=== PATIENT | female | born 1985 | race Caucasian/White ===

== ENCOUNTER 2023-11-21 00:34 | Day surgery (SDC) | payer BC, SELFPAY ==
--- NOTE | 2023-11-20 16:17 | PM.IMHP ---
H&P: HPI History of Present Illness Date/Time: 11/20/23 16:17 Chief Complaint: complex right ovarian cyst Narrative: 38-year-old female status post hysterectomy seen in the office in 6 12/13/2023 with severe pelvic pain. Scan outside facility shows a complex right ovarian cyst. She complains of severe intractable pain. She has multiple medical problems and takes many medicines. Unfortunately she has been on was then back and we discussed the increase risk of GI complications. In light of her severe discomfort she will undergo urgent right salpingo-oophorectomy. Exam Const: General: cooperative and healthy appearing Nutritional Appearance: obese Orientation/consciousness: oriented to person, oriented to place and oriented to time Resp: Effort & Inspection: normal respiratory effort Cardio: Rate: regular rate Rhythm: regular rhythm Heart sounds: S1 normal heart sound present and S2 normal heart sound present GI: Inspection: normal to inspection : External Female Exam: normal external appearance Speculum Exam - Vagina: normal appearance of the vagina Speculum Exam - Cervix: Cervix absent Bimanual exam- vagina & uterus: uterus absent Bimanual Exam- Adnexa, other: Adnexal mass present on the right tender Assessment and Plan Assessment and plan (1) Complex cyst of right ovary: Code(s): N83.291 - Other ovarian cyst, right side Status: Acute Assessment and Plan: laparoscopic right salpingo-oophorectomy
--- NOTE | 2023-11-20 16:51 | PC.NURSE ---
Report to the Outpatient Waiting Room, entrance under the green pavilion located off [facility], at time 1115 on date 11/21/23. Planned Procedure Time: 1315. Time changes happen often and if your time is changed the preop area will call you the afternoon before. - You and your visitor will be asked to self-screen and do not enter if you have any COVID symptoms. - A mask is optional within the hospital at this time. Patients may have clear liquids (water, carbonated beverages, clear teas, apple juice) until 3 hours prior to surgery with a maximum of 20 ounces. 1015 - No food from midnight until time of surgery - Infants may have breast milk until 4 hours before surgery, formula 6 hours prior to surgery. - Children will be allowed to drink immediately following surgery. If applicable, please bring a bottle or sippy cup to assist with drinking. Juice, water, soda, and popsicles are readily available. For infants on formula, please bring formula the day of surgery. Pacifiers are allowed. Take the following medications with a SIP of water the morning of surgery: BUSPAR, LEVOTHYROXINE DO NOT STOP ANY OF YOUR OTHER PRESCRIPTION MEDICATIONS PRIOR TO SURGERY ?EXCEPT THE FOLLOWING Medications to discontinue per physician N/A- PATIENT HAS NOT HAD OZEMPIC FOR SEVERAL WEEKS. LAST DOSE WAS 11/03/23. Date to take last dose Please no make-up, nail lithuanian, hairspray, perfume, deodorant, or body powder the day of surgery. No jewelry (including any body piercings) or valuables the day of surgery, leave them at home. Please take a shower or bath the night before, or the morning of, surgery with an antibacterial soap. Wear comfortable, loose fitting clothing. Children are encouraged to wear pajamas. - Jewelry must be removed prior to entering the operating room. Rings and piercings that are not removed may be cut off. - The hospital will not accept responsibility for valuables. - Please leave all valuables, including medications, at home the day of surgery. If you are going home after surgery, a licensed local hazmat driver must drive you home. - NO public transportation without another adult if you receive anesthesia. - We recommend that an adult stay with you for 24 hours following discharge. - We also recommend that you do not drive, make important decision, drink alcoholic beverages, or take any drugs that were not prescribed by your health care provider for at least 24 hours after your discharge time. For Pediatric surgeries, we recommend two adults accompany the child home. Follow any additional instructions given to you from your surgeon. If you or anyone in your household have experienced Covid symptoms in the past week, please notify your surgeon or the nurse liaison at the phone number below for possible testing. Telephone instructions given to Patient- Laura Modi and asked if any additional questions and then verbalized understanding. Patient advised to call surgeon office or pre surgery nurse liaison [phone] if any additional questions.
[2023-11-20 17:02] VITALS: BMI 40.3
--- NOTE | 2023-11-21 04:46 | WPDHPUPDATE1 ---
History and Physical Update Update Date/Time: 11/21/23 04:46 History and Physical has been reviewed, including an updated exam of the patient. There are NO changes in the patient's condition. Risks, benefits, and alternatives have been discussed and questions answered. Patient agrees to proceed with procedure.
--- NOTE | 2023-11-21 10:56 | ECG_ITS ---
Test Date: 2023-11-21 11:26:41 Measurements Intervals [place] Rate: 79 P: 14 [place]: 145 QRS: 28 QRSD: 90 T: 40 QT: 374 QTc: 430 Interpretive Statements SINUS RHYTHM NORMAL ELECTROCARDIOGRAM No previous ECG available for comparison Electronically Signed On 11-21-2023 15:48:06 CDT by Fabio Vogt M.D.
[2023-11-21 10:59] VITALS: BP 106/73; PULSE 90; RESP 14; TEMP 36.9; O2SAT 99
[2023-11-21 11:05] VITALS: BMI 38.8
[2023-11-21] MEDS: LACTATED RINGERS 1,000 ML 30 ML IV CONT ×2 (11:30→13:23)
--- NOTE | 2023-11-21 11:38 | SUR.PREOP ---
1138- Notified Dr. Mo and Dr. Robert Ponce patient's Type and Screen and BMP sent to lab and pending. Per Dr. Mo and Dr. Robert Ponce OK to proceed with case.
[2023-11-21] MEDS: ACETAMINOPHEN 500 MG TABLET 1000 MG PO (11:40)
[2023-11-21] MEDS: KETOROLAC 15 MG/ML VIAL (*BKC) IV PUSH (11:40)
--- NOTE | 2023-11-21 11:41 | WPDANESEPPF ---
Anes - Initial Pre Proc Eval Procedure: Operation Date: 11/21/23 13:15 Proposed Procedures p Laparoscopic Right Salpingo-oophorectomy - Antoine Ponce MD Date/Time: 11/21/23 11:41 Surgeon: Antoine Ponce MD Pre Op Diagnosis: Rt Ovarian Cyst, Severe Pain Patient Data Age: 38 Gender: F Height: 1.57 m Weight: 96.4 kg Allergies Allergy/AdvReac Type Severity Reaction Status Date / Time loratadine [From Claritin-D] AdvReac Other Verified 11/21/23 11:13 pseudoephedrine AdvReac Other Verified 11/21/23 11:13 [From Claritin-D] Sulfa (Sulfonamide AdvReac Other Verified 11/21/23 11:13 Antibiotics) Home Medications Medication Instructions Recorded Confirmed Type buspirone 10 mg tablet 10 mg PO BID 11/20/23 11/20/23 History insulin aspart U-100 100 unit/mL See Rx Instructions .Route .COMPLEX 11/20/23 11/20/23 History (3 mL) subcutaneous pen (Novolog FlexPen U-100 Insulin aspart) insulin degludec 100 unit/mL (3 30 unit subcut HS 11/20/23 11/20/23 History mL) subcutaneous pen (Tresiba FlexTouch U-100 insulin) lamotrigine 150 mg tablet 300 mg PO HS 11/20/23 11/20/23 History levothyroxine 175 mcg tablet 175 mcg PO DAILY 11/20/23 11/20/23 History semaglutide 2 mg/dose (8 mg/3 mL) 2 mg subcut WEEKLY 11/20/23 11/20/23 History subcutaneous pen injector (Ozempic) venlafaxine 150 mg 150 mg PO HS 11/20/23 11/20/23 History capsule,extended release 24 hr Laboratory Tests 11/21/23 11:35 Sodium Pending Potassium Pending Chloride Pending Carbon Dioxide Pending Anion Gap Pending BUN Pending Creatinine Pending Estim Creat Clear Calc Pending Estimated GFR Pending Glucose Pending Calcium Pending Patient hx anesthesia problems: post op nausea/vomiting Family hx anesthesia problems: none Results Review: All pre-operative results and documents have been reviewed as part of the pre-operative evaluation. [facility] Social History Social History Smoking packs per day: 0.5 Smoking cigarettes per day: 10.0 Years smoked: 9 Smoking pack-years: 4.50 Smoking status: Former smoker Tobacco type: cigarettes Spiritual care concerns: No Anes - Eval Final PreProcedure Day of Procedure 11/21/23 11:41 Patient weight: obese Heart: regular rate and rhythm Lungs: clear to auscultation Airway: Mallampati scale class II Neurological: alert and oriented Last oral intake: >/= 8 hours ASA classification: III Emergent: no Anesthetic plan: proceed Anesthesia type and monitoring: general ETT and standard monitoring Results Review: All pre-operative results and documents have been reviewed as part of the pre-operative evaluation. Informed Consent: The patient's anesthetic plan and its attendant risks and benefits were discussed with the patient/family/POA. Questions were solicited and answers provided to the satisfaction of the patient/family/POA.
[2023-11-21 11:45] LABS: Glucose Point of Care 144 mg/dl (65-105)
[2023-11-21 11:50] LABS: Anion Gap 8 mmol/L (4-12); Blood Urea Nitrogen 10 mg/dL (7-17); Calcium 9.1 mg/dL (8.4-10.2); Carbon Dioxide 25 mmol/L (22-30); Chloride 106 mmol/L (98-107); Estimated CRCL calculation 116 ml/min; Estimated Glomerular Filt Rate > 60; Glucose 153 mg/dL (65-110); Potassium 4.2 mmol/L (3.4-5.0); Sodium 139 mmol/L (137-145)
--- NOTE | 2023-11-21 12:17 | SUR.PREOP ---
1217- Call to LELAND Anand in OR room 7 for second confirmation type. Per Dr. Robert Ponce do not send second confirmation type as it is not needed.
--- NOTE | 2023-11-21 12:24 | W.PM.PROC2 ---
Procedure Note - Detailed Date of Procedure 11/21/23 Pre-op Diagnosis Rt Ovarian Cyst, Severe Pain Post-op Diagnosis Same Procedure Performed Laparoscopic right salpingo-oophorectomy Surgeon Antoine Ponce MD Anesthesia General Indications this is a 38-year-old status post hysterectomy with the complex right ovarian cyst Findings uterus was absent. There is a large right ovarian cyst. The left ovary and tube appeared within normal limits. Description of Procedure Patient was prepped draped in the normal sterile fashion placed dorsal lithotomy position. Excellent general trach anesthesia weighted speculum placed in posterior fornix. A sponge stick placed in the bladder drained of clear urine. The weighted speculum was removed the gloves were changed. An infraumbilical incision made the Veress passed the abdomen filled with CO2 gas 15. 5mm trocar advanced under direct visualization assuring no injury. Patient placed in Trendelenburg and a suprapubic incision made advanced under direct visualization assuring no injury. A right lower quadrant incision made in the 10mm trocar advanced under direct visualization assuring no injury this large irregular right complex was noted in the infundibulopelvic structure was clamped burned cut with the LigaSure. This was placed in an Endo-Catch through the right lower quadrant. Left ovary and tube appeared within normal limits and no other abnormalities were seen. Lower site removed. The gas from the abdomen. The upper site. The incisions closed with 4-0 Monocryl glue. The sponge stick removed from the vagina the patient was awakened and went to recovery in satisfactory condition. All sponge, needle, instrument counts were correct. there were no Complications Estimated Blood Loss 5 Drains No Packing No Pathology Yes Complications No immediate complications Condition Stable Disposition PACU
[2023-11-21 12:30] VITALS: BP 151/73; PULSE 82; RESP 18; TEMP 35.9; O2SAT 93
[2023-11-21] MEDS: fentaNYL CITRATE INJ (*CRX) 100 MCG/2 ML VIAL 25 MCG IV PUSH ×2 (12:42→13:00)
[2023-11-21 12:45] VITALS: BP 130/66; PULSE 92; RESP 20; O2SAT 93
[2023-11-21 12:45] LABS: Glucose Point of Care 143 mg/dl (65-105)
[2023-11-21 13:00] VITALS: BP 114/67; PULSE 87; RESP 20; TEMP 36.3; O2SAT 96
[2023-11-21 13:10] VITALS: BP 141/76; PULSE 94; RESP 14
[2023-11-21] MEDS: oxyCODONE HCL (*CRX) 5 MG TAB IR PO (13:35)
[2023-11-21 13:40] VITALS: BP 117/62; PULSE 87
== END 2023-11-21 14:07 | disposition home or self-care (01) ==
PROVIDERS: Anesthesiology; Visit Provider Obstetrics & Gynecology
PROC: (CPT 49320; principal; 2023-11-21 13:15)
DX: N83.291 Other ovarian cyst, right side (principal); R10.2 Pelvic and perineal pain
CPT/HCPCS: 58661; 36415; 80048; 82948; 86850; 86900; 86901; 88305; 93005; A9270; J1100; J1200; J1885; J2250; J2371; J2405; J2704; J3010; J7120